=== PATIENT | male | born 1960 | race Hispanic/Latino ===

== ENCOUNTER → 2020-08-25 | Day surgery (SDC) | payer SELFPAY ==
[~2020-08-25] MED LIST: AMLODIPINE BESYL5 MG PO; LISINOPRIL10 MG PO; METFORMIN HCL500 MG PO; OR PHACO EYE KIT ONE; PREOP PHACO EYE KIT ONE; SIMVASTATIN20 MG PO
[2020-08-25 11:35] VITALS: BP 123/76
== END | disposition home or self-care (01) ==
LOC: OR 09:32
PROVIDERS: ATTEND Ophthalmology
DX: H25.11 Age-related nuclear cataract, right eye (principal); E11.9 Type 2 diabetes mellitus without complications; I10 Essential (primary) hypertension; Z01.812 Encounter for preprocedural laboratory examination; Z20.822 Contact with and (suspected) exposure to COVID-19; Z79.84 Long term (current) use of oral hypoglycemic drugs
CPT/HCPCS: 36415; 66984; 82948; U0002; V2787